=== PATIENT | female | born 1980 | race Caucasian/White ===

== ENCOUNTER 2024-01-31 18:49 | Emergency (ER) | payer OTHER, SELFPAY ==
--- NOTE | 2024-01-31 18:58 | CTR_ITS ---
PROCEDURE INFORMATION: Exam: CT Abdomen And Pelvis With Contrast Exam date and time: 01/31/2024 7:50 PM Age: 43 years old Clinical indication: Abdominal pain; Patient HX: Patient says she had been fighting a UTI for 3 months, reports right flank pain that shoots up to neck; Additional info: Flank pain, abdominal pain, right sided TECHNIQUE: Imaging protocol: Computed tomography of the abdomen and pelvis with contrast. Radiation optimization: All CT scans at this facility use at least one of these dose optimization techniques: automated exposure control; mA and/or kV adjustment per patient size (includes targeted exams where dose is matched to clinical indication); or iterative reconstruction. Contrast material: OMNI 350; Contrast volume: 100 ml; Contrast route: INTRAVENOUS (IV); COMPARISON: No relevant prior studies available. RADIATION DOSE METRICS: Total DLP (mGy-cm): 644.23 FINDINGS: Lungs: Right lower lobe 4.8 mm nodule. Liver: Normal. No mass. Gallbladder and biliary ducts: Cholecystectomy. Pancreas: Normal. No ductal dilation. Spleen: Normal. No splenomegaly. Adrenal glands: Normal. No mass. Kidneys and ureters: Bilateral renal cysts, negative for follow-up advised. Stomach and bowel: Prominent fluid in the small bowel, please correlate for an enteritis. Gastric surgical sutures. Appendix: No evidence of appendicitis. Intraperitoneal space: Unremarkable. No free air. No significant fluid collection. Vasculature: Unremarkable. No abdominal aortic aneurysm. Lymph nodes: Unremarkable. No enlarged lymph nodes. Urinary bladder: Unremarkable as visualized. Reproductive: Right ovary 26 mm septated cyst. Bones/joints: Unremarkable. No acute fracture. Soft tissues: Unremarkable. CT/CT abdomen pelvis w con* [id number] IMPRESSION: 1. Prominent fluid in the small bowel, please correlate for an enteritis. 2. Gastric surgical sutures. 3. Right ovary 26 mm septated cyst. 4. Right lower lobe 4.8 mm nodule. For patients at low risk (minimal or absent history of smoking and of other known risk factors), no routine follow-up is indicated. For patients at high risk (history of smoking or of other known risk factors), consider optional CT Chest at 12 months. (Reference: Connie) 5. Cholecystectomy. 6. Bilateral renal cysts, negative for follow-up advised. COMMENTS: Consistent with the [employer]'s Incidental Findings Committee white paper (J Am Harsh Radiol 2018): Any incidental renal lesion less than 1 cm or classified as too small to characterize, or any incidental cystic renal lesion characterized as simple-appearing, is likely benign. No follow-up imaging is recommended for these lesions per consensus recommendations based on imaging criteria. REFERENCES: Connie Otoole, et al. Guidelines for Management of Incidental Pulmonary Nodules Detected on CT Images: From the Fleischner Society 2017. Radiology. 2017;284(1):228-243.
[2024-01-31 19:04] VITALS: PULSE 106; RESP 20; TEMP 37.3; O2SAT 95
[2024-01-31 19:27] LABS: Basophils % 0.3 %; Eosinophils # 0.1 10^3/uL (0.0-0.8); Eosinophils % 1.2 %; Hematocrit 39.6 % (36-47); Lymphocytes # 0.6 10^3/uL (0.8-4.8); Lymphocytes % 6.3 %; Mean Corpuscular HGB Conc 34.3 g/dL (30-55); Mean Corpuscular Hemoglobin 30.4 pg (27-33); Mean Corpuscular Volume 88.4 fl (85-98); Mean Platelet Volume 10.6 fL (7.4-10.4); Monocytes # 0.6 10^3/uL (0.2-0.9); Monocytes % 5.6 %; Neutrophils # 8.59 10^3/uL (1.8-7.7); Neutrophils % 86.2 %; Nucleated Red Blood Cells % 0 %; Platelet Count 246 10^3/cmm (157-399); Red Blood Count 4.48 10^6/uL (3.85-5.65); Red Cell Distribution Width 12.4 % (12.1-15.1); White Blood Count 9.97 10^3/uL (3.29-11.43)
[2024-01-31] MEDS: cefepime 1,000 mg SDV 2000 MG IVP (19:30)
[2024-01-31] MEDS: water for injection-sterile 10 ML 12 ML (19:37)
[2024-01-31] MEDS: sodium chloride 0.9% 1,000 ML 999 ML IV (19:37)
[2024-01-31 19:44] LABS: Alanine Aminotransferase 17 U/L (0-33); Albumin Level 4.4 g/dL (3.5-5.2); Alkaline Phosphatase 72 U/L (35-105); Anion Gap 14.7 (5-19); Aspartate Amino Transferase 17 U/L (0-32); Blood Urea Nitrogen 12 mg/dL (6-20); C Reactive Protein 5.3 mg/L (0.0-4.9); Calcium 9.1 mg/dL (8.5-10.5); Carbon Dioxide 25 mmol/L (22-29); Chloride 99 mmol/L (98-107); Globulin 2.4 g/dL (1.3-4.6); Glomerular Filtration Rate 90.5 mL/min (90-130); Glucose 103 mg/dL (65-115); Lactic Sepsis W/Reflex 0.6 mmol/L (0.5-2.2); Osmolality Calculated 280 mOsm/kg (285-295); Potassium 3.7 mmol/L (3.5-5.1); Sodium 135 mmol/L (136-145); Total Bilirubin 0.4 mg/dL (0.15-1.2); Total Protein 6.8 g/dL (6.6-8.7)
[2024-01-31] MEDS: iohexol 350 mg/mL 500 mL Btl (per mL) IV (19:53)
[2024-01-31] MEDS: ketorolac 30 mg/mL INJ IVP (19:58)
[2024-01-31] MEDS: HYDROmorphone 1 mg/mL INJ 1 mL 0.5 MG IVP ×2 (19:59→21:00)
[2024-01-31] MEDS: ondansetron 2 mg/ML SDV 2 mL 4 MG IVP (19:59)
--- NOTE | 2024-01-31 20:06 | ED_ITS ---
HPI - Fever 2 General: Chief Complaint: Fever Stated Complaint: Fever Time Seen by Provider: 01/31/24 18:51 History of Present Illness: This is a healthy 43-year-old female who presents emergency room with malaise and low-grade fevers for the last couple days. She is having bilateral low back pain and neck pain. No nuchal rigidity. No chest pain. No focal abdominal pain. No diarrhea. No vomiting. No dysuria. Review of Systems 2 Narrative: Constitutional symptoms: Negative except as documented in HPI. Skin symptoms: Negative except as documented in HPI. Eye symptoms: Negative except as documented in HPI. ENMT symptoms: Negative except as documented in HPI. Respiratory symptoms: Negative except as documented in HPI. Cardiovascular symptoms: Negative except as documented in HPI. Gastrointestinal symptoms: Negative except as documented in HPI. Genitourinary symptoms: Negative except as documented in HPI. Musculoskeletal symptoms: Negative except as documented in HPI. Neurologic symptoms: Negative except as documented in HPI. Psychiatric symptoms: Negative except as documented in HPI. Endocrine symptoms: Negative except as documented in HPI. Physical Exam 2 Narrative: EXAM NARRATIVE: General: Alert, no acute distress. Skin: Warm, dry. Head: Normocephalic, atraumatic. Neck: Supple, trachea midline. Eye: Extraocular movements are intact. Ears, nose, mouth and throat: Dry oral mucosa Cardiovascular: Regular, Normal peripheral perfusion. Respiratory: Lungs are clear to auscultation, respirations are non-labored, breath sounds are equal, Symmetrical chest wall expansion. Gastrointestinal: Soft, flank tenderness to palpation, Non distended Musculoskeletal: Normal ROM, no deformity. Neurological: Alert and oriented, No focal neurological deficit observed. Psychiatric: Cooperative, appropriate mood & affect. Course 2 Vital Signs: Vital signs: Vital Signs Temperature 99.1 F 01/31/24 19:04 Pulse Rate 86 01/31/24 20:54 Respiratory Rate 16 01/31/24 20:54 Blood Pressure 111/56 01/31/24 20:54 Pulse Oximetry 96 01/31/24 20:54 Oxygen Delivery Me thod Room Air 01/31/24 19:04 MDM - Fever Medical Decision Making Medical decision making: Differential diagnosis including but not limited to and based on the above HPI, review of systems and physical exam: Fever and malaise. Flank pain. Would have concern for urinary tract infection, pyelonephritis, sepsis, viral illness such as flu or COVID, Orders placed to evaluate differential diagnosis based on the above differential, HPI and physical exam Lab Review: Laboratory results were reviewed and interpreted by myself the emergency room physician. White count is mildly elevated at 10,000. Significant left shift at 86%. Sodium is 135. BUN and creatinine are 12 and 0.7. Urinalysis is clear. CT of the abdomen pelvis: No obvious acute abnormalities. She has a right ovarian cyst. Pulmonary logical in the right lower lobe. We discussed this. Bilateral renal cyst. This was reviewed and interpreted by myself the emergency room physician. I also reviewed the radiology report. I reviewed the patient's medical record. Reexamination: Patient remained stable and says she feels quite a bit better after Toradol fluids and Dilaudid. No increased work of breathing. No altered mental status. No focal abdominal pain. Assessment and plan: Viral illness Malaise Fever Dysuria - Discharged home - Discussed findings and plan with patient. Answered any questions. - All laboratory values were reviewed and interpreted personally by myself, the ER physician - All imaging was reviewed and interpreted personally by myself, the ER physician. - Evaluation and treatment of this problem were appropriate in the emergency setting Lab Data 01/31/24 19:09 01/31/24 19:09 Radiology Impressions Abdomen/Pelvis CT 01/31/24 18:58 IMPRESSION: 1. Prominent fluid in the small bowel, please correlate for an enteritis. 2. Gastric surgical sutures. 3. Right ovary 26 mm septated cyst. 4. Right lower lobe 4.8 mm nodule. For patients at low risk (minimal or absent history of smoking and of other known risk factors), no routine follow-up is indicated. For patients at high risk (history of smoking or of other known risk factors), consider optional CT Chest at 12 months. (Reference: Connie) 5. Cholecystectomy. 6. Bilateral renal cysts, negative for follow-up advised. COMMENTS: Consistent with the [employer]'s Incidental Findings Committee white paper (J Am Harsh Radiol 2018): Any incidental renal lesion less than 1 cm or classified as too small to characterize, or any incidental cystic renal lesion characterized as simple-appearing, is likely benign. No follow-up imaging is recommended for these lesions per consensus recommendations based on imaging criteria. REFERENCES: Connie Otoole, et al. Guidelines for Management of Incidental Pulmonary Nodules Detected on CT Images: From the Fleischner Society 2017. Radiology. 2017;284(1):228-243. Laboratory Results WBC 9.97 10^3/uL (3.29-11.43) 01/31/24 19:09 RBC 4.48 10^6/uL (3.85-5.65) 01/31/24 19:09 Hgb 13.60 g/dL (11.27-16.99) 01/31/24 19:09 Hct 39.6 % (36-47) 01/31/24 19:09 MCV 88.4 fl (85-98) 01/31/24 19:09 MCH 30.4 pg (27-33) 01/31/24 19:09 MCHC 34.3 g/dL (30-55) 01/31/24 19:09 RDW 12.4 % (12.1-15.1) 01/31/24 19:09 Plt Count 246 10^3/cmm (157-399) 01/31/24 19:09 MPV 10.6 fL (7.4-10.4) H 01/31/24 19:09 Neut % (Auto) 86.2 % 01/31/24 19:09 Lymph % (Auto) 6.3 % 01/31/24 19:09 [place] % (Auto) 5.6 % 01/31/24 19:09 Eos % (Auto) 1.2 % 01/31/24 19:09 Baso % (Auto) 0.3 % 01/31/24 19:09 Neut # (Auto) 8.59 10^3/uL (1.8-7.7) H 01/31/24 19:09 Lymph # (Auto) 0.6 10^3/uL (0.8-4.8) L 01/31/24 19:09 [place] # (Auto) 0.6 10^3/uL (0.2-0.9) 01/31/24 19:09 Eos # (Auto) 0.1 10^3/uL (0.0-0.8) 01/31/24 19:09 Baso # (Auto) 0.0 10^3/uL (0.0-0.1) 01/31/24 19:09 Nucleated RBC % (auto) 0 % 01/31/24 19:09 Nucleated RBCs # 0.0 /100WBC 01/31/24 19:09 Sodium 135 mmol/L (136-145) L 01/31/24 19:09 Potassium 3.7 mmol/L (3.5-5.1) 01/31/24 19:09 Chloride 99 mmol/L (98-107) 01/31/24 19:09 Carbon Dioxide 25 mmol/L (22-29) 01/31/24 19:09 Anion Gap 14.7 (5-19) 01/31/24 19:09 BUN 12 mg/dL (6-20) 01/31/24 19:09 Creatinine 0.7 mg/dL (0.5-0.9) 01/31/24 19:09 GFR Calculation 90.5 mL/min (90-130) 01/31/24 19:09 Glucose 103 mg/dL (65-115) 01/31/24 19:09 Calculated Osmolality 280 mOsm/kg (285-295) L 01/31/24 19:09 Lactic Acid 0.6 mmol/L (0.5-2.2) 01/31/24 19:09 Calcium 9.1 mg/dL (8.5-10.5) 01/31/24 19:09 Total Bilirubin 0.4 mg/dL (0.15-1.2) 01/31/24 19:09 AST 17 U/L (0-32) 01/31/24 19:09 ALT 17 U/L (0-33) 01/31/24 19:09 Alkaline Phosphatase 72 U/L (35-105) 01/31/24 19:09 C-Reactive Protein 5.3 mg/L (0.0-4.9) H 01/31/24 19:09 Total Protein 6.8 g/dL (6.6-8.7) 01/31/24 19:09 Albumin 4.4 g/dL (3.5-5.2) 01/31/24 19:09 Globulin 2.4 g/dL (1.3-4.6) 01/31/24 19:09 Urine Color Yellow (Yellow) 01/31/24 20:03 Urine Appearance Clear (CLEAR) 01/31/24 20:03 Urine pH 8 (5-7) H 01/31/24 20:03 Ur Specific [place] 1.010 (1.005-1.030) 01/31/24 20:03 Urine Protein Neg (Negative) 01/31/24 20:03 Urine Glucose (UA) Norm (Normal) 01/31/24 20:03 Urine Ketones Negative (Negative) 01/31/24 20:03 Urine Blood Neg (Negative) 01/31/24 20:03 Urine Nitrate Negative (Negative) 01/31/24 20:03 Urine Bilirubin Neg (Negative) 01/31/24 20:03 Urine Urobilinogen Norm mg/dL (Negative) 01/31/24 20:03 Ur Leukocyte Esterase Negative (Negative) 01/31/24 20:03 Urine RBC Rare /hpf (0-2) 01/31/24 20:03 Urine WBC Rare /hpf (0-5) 01/31/24 20:03 Ur Squamous Epith Cells 0-4 /hpf (0-5) H 01/31/24 20:03 Amorphous Sediment Not Reportable 01/31/24 20:03 Urine Bacteria None /hpf (NONE) 01/31/24 20:03 Urine Mucus None /hpf 01/31/24 20:03 SARS-CoV-2 Ag (Rapid) Cancelled 01/31/24 20:22 All radiology interpretation(s) finalized by discharge Discharge Plan Discharge Patient Disposition: Home Clinical Impression: Viral infection Condition: Stable Discharge Orders: Discharge ED (Routine); Ordered 01/31/24 Ordered By: Jaqueline Vega Discharge Diet: Usual diet Discharge Activity: Increase activity as tolerated Patient Instructions: Opioid Safety, Pain Management Activity Restrictions/Additional Instructions: A pulmonary nodule was seen on imaging. This will need follow up imaging with your primary provider. Please schedule an appointment concerning this. Thank you for choosing [facility] for your healthcare needs today. Please realize this is an emergency room and that we are providing you with a medical screening exam and this may not be complete and all inclusive of all the testing and or work up that you may need to determine your ailment or severity of your illness. You have been screened and evaluated and felt safe for discharge. Health conditions do change or evolve sometimes and as such it is important that you follow up with your Primary Doctor to be re checked, 3-5 days is a general good time frame for follow up. You are always welcome to return to the ED for re assessment if your symptoms are worsening or you have new concerns Coding Level of Care Code ED [employer] for Dominique Rodríguez
[2024-01-31 20:18] LABS: Urine Appearance Clear (CLEAR); Urine Color Yellow (Yellow); pH Urine 8 (5-7)
[2024-01-31 20:19] LABS: Bilirubin Urine Neg (Negative); Blood Urine Neg (Negative); Glucose Urine UA Norm (Normal); Ketones Urine Negative (Negative); Leukocyte Esterase Urine Negative (Negative); Nitrate Urine Negative (Negative); Protein Urine Neg (Negative); Urobilinogen Urine Norm (Negative)
[2024-01-31 20:20] LABS: RBC Urine RARE /hpf (0-2); WBC Urine RARE /hpf (0-5)
[2024-01-31 20:21] LABS: Add Urine Culture? No; Squamous Epithelial Cell Urine 0-4 /hpf (0-5)
[2024-01-31] MEDS: dexamethasone 10 mg/mL INJ IVP (20:45)
[2024-01-31 20:54] VITALS: BP 111/56; PULSE 86; RESP 16; O2SAT 96
[2024-01-31 21:03] VITALS: BP 111/56; PULSE 86; RESP 16; TEMP 37.3; O2SAT 96
[2024-01-31 22:09] LABS: Adenovirus Not Detected (NOT DETECT); Chlamydia Pneumoniae Not Detected (NOT DETECT); Coronavirus 229E,HKU1,NL63,OC4 Not Detected (NOT DETECT); Human Metapneumovirus Not Detected (NOT DETECT); Human Rhinovirus/Enterovirus Not Detected (NOT DETECT); Influenza A Not Detected (NOT DETECT); Influenza A H1 Not Detected (NOT DETECT); Influenza A H1-2009 Not Detected (NOT DETECT); Influenza A H3 Not Detected (NOT DETECT); Influenza B Not Detected (NOT DETECT); Mycoplasma Pneumoniae Not Detected (NOT DETECT); Parainfluenza Virus Type 1 Not Detected (NOT DETECT); Parainfluenza Virus Type 2 Not Detected (NOT DETECT); Parainfluenza Virus Type 3 Not Detected (NOT DETECT); Parainfluenza Virus Type 4 Not Detected (NOT DETECT); Respiratory Syncytial Virus A Not Detected (NOT DETECT); Respiratory Syncytial Virus B Not Detected (NOT DETECT); SARS-COV-2 Not Detected (NOT DETECT)
== END 2024-01-31 21:10 | disposition home or self-care (01) ==
PROVIDERS: Emergency Provider Emergency Medicine
DX: B34.9 Viral infection, unspecified (principal); Z11.52 Encounter for screening for COVID-19
CPT/HCPCS: 36415; 74177; 80053; 81001; 83605; 85025; 86140; 87040; 87486; 87581; 87633; 96374; 96375; 96376; 99285; J0692; J1100; J1170; J1885; J2405; J7030; Q9967